=== PATIENT | female | born 1935 | race Caucasian/White ===

== ENCOUNTER → 2016-08-24 | Outpatient (CLI) | payer MEDICARE, OTHER ==
[~2016-08-24] MED LIST: ASPIR-LOW81 MG PO; CALTRATE-600 W600 MG PO; CRANBERRY CONC500 MG PO; DOXYCYCLINE 50M50 MG PO; EYE PROMISE RESTORE PO; LEVOTHYROXIN0.075 MG PO; LUTEIN6 MG PO; MELAT3MGTAB PO; VITAMIN D1000 IU PO; ZEAXANTHIN PO
== END ==
LOC: MC.RAD 14:31
DX: Z12.31 Encounter for screening mammogram for malignant neoplasm of breast (principal)

== ENCOUNTER → 2018-09-30 | Outpatient (CLI) | payer MEDICARE, OTHER | LOC: MC.RAD 14:01 | DX: Z12.31 Encounter for screening mammogram for malignant neoplasm of breast (principal) ==